=== PATIENT | female | born 1965 | race Caucasian/White ===

== ENCOUNTER 2020-04-28 09:00 | Observation (INO) ==
[2020-04-28 09:32] LABS: Hematocrit 38.4 % (35.3-44.9); Hemoglobin 12.6 g/dL (11.5-15.4); Mean Corpuscular HGB Conc 32.8 g/dL (31.6-35.5); Mean Corpuscular Hemoglobin 31.5 pg (28.0-33.3); Mean Platelet Volume 9.4 fL (9.4-12.4); Platelet Count 183 K/mcL (140-400); Red Cell Distribution Width 12.6 % (11.5-14.5); White Blood Count 4.4 K/mcL (4.3-11.1)
[2020-04-28 09:38] LABS: INR 1.6; Prothrombin Time 18.8 Seconds (9.4-12.1)
[2020-04-28 09:40] LABS: Activated Partial Thrombo Time 34.7 Seconds (26.0-36.0)
[2020-04-28 09:45] LABS: BUN/Creatinine Ratio 10 (6-26); Blood Urea Nitrogen 8 mg/dL (6-20); Calcium 9.1 mg/dL (8.6-10.3); Carbon Dioxide 30 mEq/L (23-29); Chloride 104 mEq/L (98-107); Glucose 112 mg/dL (70-105); Osmolality,Calculated 293 (280-300); Potassium 3.9 mEq/L (3.5-5.1); Sodium 142 mEq/L (136-145); eGFR For African Americans > 60 (> 60); eGFR For Non-African Americans > 60 (> 60)
[2020-04-28 09:49] LABS: Troponin I < 0.03 ng/mL (< 0.04)
[2020-04-28] MEDS ORDERED: Ondansetron 4 MG/2 ML VIAL IVP PRN (10:53)
[2020-04-28] MEDS ORDERED: Naloxone 0.4 MG/ML INJ IVP PRN (10:53)
[2020-04-28] MEDS ORDERED: Isovue-370 500 ML BOTTLE IVP ONE (11:00)
[2020-04-28] MEDS: Acetaminophen 325 MG TABLET PO PRN ×2 (12:07→22:25)
[2020-04-28] MEDS: Nicotine 14 MG PATCH.TD24 TD SCH (16:45)
[2020-04-28] MEDS ORDERED: Melatonin 3 MG TABLET PO ONE (22:30)
[2020-04-29 07:17] LABS: Hematocrit 40.5 % (35.3-44.9); Hemoglobin 13.3 g/dL (11.5-15.4); Mean Corpuscular HGB Conc 32.8 g/dL (31.6-35.5); Mean Corpuscular Hemoglobin 31.7 pg (28.0-33.3); Mean Corpuscular Volume 96.7 fL (83.0-100.0); Mean Platelet Volume 10.5 fL (9.4-12.4); Platelet Count 192 K/mcL (140-400); Red Blood Count 4.19 M/mcL (3.82-4.97); Red Cell Distribution Width 12.6 % (11.5-14.5); White Blood Count 3.8 K/mcL (4.3-11.1)
[2020-04-29 07:28] LABS: BUN/Creatinine Ratio 10 (6-26); Blood Urea Nitrogen 9 mg/dL (6-20); Carbon Dioxide 31 mEq/L (23-29); Chloride 104 mEq/L (98-107); Chol/HDL Ratio 2.2 (0-4.9); Cholesterol 192 mg/dL (< 200); Glucose 105 mg/dL (70-105); HDL Cholesterol 88 mg/dL (40-59); LDL Cholesterol,Calculated 92 mg/dL (< 100); Magnesium 1.9 mg/dL (1.6-2.6); Osmolality,Calculated 287 (280-300); Sodium 139 mEq/L (136-145); Triglycerides 62 mg/dL (< 150); eGFR For African Americans > 60 (> 60); eGFR For Non-African Americans > 60 (> 60)
[2020-04-29] MEDS ORDERED: Sennosides 8.6 MG TABLET PO PRN (07:53)
[2020-04-29] MEDS ORDERED: Melatonin 3 MG TABLET PO PRN (07:53)
[2020-04-29] MEDS ORDERED: ARIPiprazole 400 MG SUSER.SYR IM SCH (08:00)
[2020-04-29] MEDS ORDERED: hydrALAZINE 10 MG TABLET PO SCH (08:00)
[2020-04-29] MEDS: Nicotine 14 MG PATCH.TD24 TD SCH (08:14)
[2020-04-29] MEDS: BuPROPion SR (12 HR) 150 MG TABLET PO SCH (08:14)
[2020-04-29] MEDS: polyethylene glycoL 3350 17 GM POWD.PACK PO SCH (08:15)
[2020-04-29] MEDS ORDERED: ALBUTEROL SULFATE PO SCH (09:00)
[2020-04-29] MEDS ORDERED: IPRATROPIUM PO SCH (09:00)
[2020-04-29] MEDS: OLANZapine 10 MG TAB.RAPDIS PO SCH ×2 (09:44→20:29)
[2020-04-29] MEDS: lamoTRIgine 100 MG TABLET PO SCH (09:48)
[2020-04-29] MEDS: Budesonide/Formoterol 160/4.5 1 PUFF INH IH SCH ×2 (10:46→21:36)
[2020-04-29] MEDS ORDERED: *HR* Rivaroxaban 15 MG TABLET PO SCH (17:00)
[2020-04-30 07:26] VITALS: BP 134/86
[2020-04-30] MEDS: Nicotine 14 MG PATCH.TD24 TD SCH (08:46)
[2020-04-30] MEDS: OLANZapine 10 MG TAB.RAPDIS PO SCH (08:46)
[2020-04-30] MEDS: BuPROPion SR (12 HR) 150 MG TABLET PO SCH (08:46)
[2020-04-30] MEDS: lamoTRIgine 100 MG TABLET PO SCH (08:46)
[2020-04-30] MEDS: polyethylene glycoL 3350 17 GM POWD.PACK PO SCH (08:47)
[2020-04-30] MEDS: Budesonide/Formoterol 160/4.5 1 PUFF INH IH SCH (10:26)
[2020-04-30] MEDS ORDERED: E-Z-PAQUE (BARIUM SULF) SUSP 1 BOTTLE PO ONE (11:19)
[2020-04-30] MEDS ORDERED: E-Z-HD (BARIUM SULF) SUSPENSION PO ONE (11:19)
== END 2020-04-30 13:00 | disposition home health service (06) ==
LOC: EMEROOPIK 09:00 → INPPIK 09:00
PROVIDERS: ADMIT Family Medicine; ATTEND Family Medicine

== ENCOUNTER 2020-10-30 15:43 | Inpatient (IN) ==
[2020-10-30] MEDS ORDERED: Melatonin 3 MG TABLET PO PRN (18:57)
[2020-10-30 21:00] LABS: Basophils % 0.3 %; Eosinophils # 0.1 K/mcL (0.0-0.6); Eosinophils % 1.5 %; Hematocrit 30.3 % (35.3-44.9); Hemoglobin 9.8 g/dL (11.5-15.4); Immature Granulocytes % 0.2 % (0-4); Lymphocytes # 2.2 K/mcL (0.6-4.6); Lymphocytes % 32.5 %; Mean Corpuscular HGB Conc 32.3 g/dL (31.6-35.5); Mean Corpuscular Hemoglobin 31.5 pg (28.0-33.3); Mean Corpuscular Volume 97.4 fL (83.0-100.0); Mean Platelet Volume 9.3 fL (9.4-12.4); Monocytes # 0.6 K/mcL (0.0-1.3); Monocytes % 8.3 %; Neutrophils # 3.8 K/mcL (1.6-8.9); Platelet Count 170 K/mcL (140-400); Red Blood Count 3.11 M/mcL (3.82-4.97); Red Cell Distribution Width 12.4 % (11.5-14.5); Segmented Neutrophils % 57.2 %; White Blood Count 6.6 K/mcL (4.3-11.1)
[2020-10-30 21:04] LABS: INR 1.2; Prothrombin Time 14.1 Seconds (9.4-12.1)
[2020-10-30 21:07] LABS: Activated Partial Thrombo Time 25.6 Seconds (26.0-36.0)
[2020-10-30 21:16] LABS: eGFR For African Americans > 60 (> 60); eGFR For Non-African Americans > 60 (> 60)
[2020-10-30] MEDS: Albuterol 2.5 MG/3 ML NEBULIZER IH SCH (21:19)
[2020-10-30] MEDS: Budesonide/Formoterol 160/4.5 1 PUFF INH IH SCH (21:19)
[2020-10-30] MEDS: traZODone 50 MG TABLET PO SCH (21:42)
[2020-10-30] MEDS: Gabapentin 300 MG CAPSULE PO SCH (21:42)
[2020-10-30] MEDS: *HR* OxyCODONE Immed Rel 5 MG TABLET PO PRN (21:42)
[2020-10-30] MEDS: OLANZapine 10 MG TAB.RAPDIS PO SCH (21:42)
[2020-10-31] MEDS: Albuterol 2.5 MG/3 ML NEBULIZER IH SCH ×6 (00:45→20:29)
[2020-10-31] MEDS: *HR* OxyCODONE Immed Rel 5 MG TABLET PO PRN ×4 (04:48→23:38)
[2020-10-31] MEDS ORDERED: Ipratropium 1 PUFF INHALER IH SCH (05:00)
[2020-10-31] MEDS: Budesonide/Formoterol 160/4.5 1 PUFF INH IH SCH ×2 (07:35→20:29)
[2020-10-31] MEDS: Tiotropium 10 INH DOSE IH SCH (08:24)
[2020-10-31] MEDS: lamoTRIgine 100 MG TABLET PO SCH (09:38)
[2020-10-31] MEDS: lisinopriL 20 MG TABLET PO SCH (09:38)
[2020-10-31] MEDS: OLANZapine 10 MG TAB.RAPDIS PO SCH ×2 (09:39→20:16)
[2020-10-31] MEDS: *HR* Rivaroxaban 15 MG TABLET PO SCH (09:40)
[2020-10-31] MEDS: Vitamin E 200 UNIT (90MG) CAPSULE PO SCH (09:40)
[2020-10-31] MEDS: Gabapentin 300 MG CAPSULE PO SCH ×3 (09:40→20:16)
[2020-10-31] MEDS: BuPROPion SR (12 HR) 150 MG TABLET PO SCH (09:40)
[2020-10-31] MEDS: traZODone 50 MG TABLET PO SCH (20:15)
[2020-10-31] MEDS: Sennosides/Docusate Sodium TABLET PO SCH (20:16)
[2020-10-31] MEDS ORDERED: Lactulose Oral Soln 20 GM/30 ML UDC PO PRN (23:26)
[2020-10-31] MEDS: polyethylene glycoL 3350 17 GM POWD.PACK PO SCH (23:38)
[2020-11-01] MEDS: Albuterol 2.5 MG/3 ML NEBULIZER IH SCH ×7 (00:42→23:30)
[2020-11-01] MEDS: Budesonide/Formoterol 160/4.5 1 PUFF INH IH SCH ×2 (09:05→20:24)
[2020-11-01] MEDS: Tiotropium 10 INH DOSE IH SCH (09:06)
[2020-11-01] MEDS: Vitamin E 200 UNIT (90MG) CAPSULE PO SCH (10:27)
[2020-11-01] MEDS: *HR* OxyCODONE Immed Rel 5 MG TABLET PO PRN ×2 (10:28→17:12)
[2020-11-01] MEDS: lisinopriL 20 MG TABLET PO SCH (10:28)
[2020-11-01] MEDS: BuPROPion SR (12 HR) 150 MG TABLET PO SCH (10:29)
[2020-11-01] MEDS: Sennosides/Docusate Sodium TABLET PO SCH ×2 (10:29→20:17)
[2020-11-01] MEDS: lamoTRIgine 100 MG TABLET PO SCH (10:29)
[2020-11-01] MEDS: *HR* Rivaroxaban 15 MG TABLET PO SCH (10:30)
[2020-11-01] MEDS: OLANZapine 10 MG TAB.RAPDIS PO SCH ×2 (10:30→20:18)
[2020-11-01] MEDS: Gabapentin 300 MG CAPSULE PO SCH ×3 (10:30→20:17)
[2020-11-01] MEDS: polyethylene glycoL 3350 17 GM POWD.PACK PO SCH (10:30)
[2020-11-01] MEDS: traZODone 50 MG TABLET PO SCH (20:16)
[2020-11-02] MEDS: Albuterol 2.5 MG/3 ML NEBULIZER IH SCH ×2 (03:39→10:03)
[2020-11-02] MEDS: *HR* OxyCODONE Immed Rel 5 MG TABLET PO PRN ×3 (06:02→19:43)
[2020-11-02] MEDS ORDERED: Albuterol 2.5 MG/3 ML NEBULIZER IH PRN (08:57)
[2020-11-02] MEDS: Sennosides/Docusate Sodium TABLET PO SCH ×2 (09:07→20:31)
[2020-11-02] MEDS: Gabapentin 300 MG CAPSULE PO SCH ×3 (09:08→20:31)
[2020-11-02] MEDS: Vitamin E 200 UNIT (90MG) CAPSULE PO SCH (09:08)
[2020-11-02] MEDS: OLANZapine 10 MG TAB.RAPDIS PO SCH ×2 (09:08→20:30)
[2020-11-02] MEDS: *HR* Rivaroxaban 15 MG TABLET PO SCH (09:08)
[2020-11-02] MEDS: lamoTRIgine 100 MG TABLET PO SCH (09:09)
[2020-11-02] MEDS: BuPROPion SR (12 HR) 150 MG TABLET PO SCH (09:09)
[2020-11-02] MEDS: lisinopriL 20 MG TABLET PO SCH (09:09)
[2020-11-02] MEDS: polyethylene glycoL 3350 17 GM POWD.PACK PO SCH (09:12)
[2020-11-02] MEDS: Tiotropium 10 INH DOSE IH SCH (10:00)
[2020-11-02] MEDS: Budesonide/Formoterol 160/4.5 1 PUFF INH IH SCH ×2 (10:00→21:16)
[2020-11-02] MEDS: traZODone 50 MG TABLET PO SCH (20:31)
[2020-11-02] MEDS ORDERED: *HR* OxyCODONE Immed Rel 5 MG TABLET PO ONE (21:45)
[2020-11-03 05:52] LABS: Hematocrit 30.8 % (35.3-44.9); Mean Corpuscular HGB Conc 32.5 g/dL (31.6-35.5); Mean Corpuscular Hemoglobin 31.4 pg (28.0-33.3); Mean Corpuscular Volume 96.9 fL (83.0-100.0); Mean Platelet Volume 9.1 fL (9.4-12.4); Platelet Count 251 K/mcL (140-400); Red Blood Count 3.18 M/mcL (3.82-4.97); Red Cell Distribution Width 12.2 % (11.5-14.5)
[2020-11-03 06:13] LABS: BUN/Creatinine Ratio 13 (6-26); Blood Urea Nitrogen 9 mg/dL (6-20); Calcium 8.9 mg/dL (8.6-10.3); Carbon Dioxide 31 mEq/L (23-29); Chloride 104 mEq/L (98-107); Chol/HDL Ratio 3.7 (0-4.9); Cholesterol 164 mg/dL (< 200); Glucose 102 mg/dL (70-105); HDL Cholesterol 44 mg/dL (40-59); LDL Cholesterol,Calculated 99 mg/dL (< 100); Osmolality,Calculated 289 (280-300); Potassium 4.2 mEq/L (3.5-5.1); Sodium 140 mEq/L (136-145); Triglycerides 104 mg/dL (< 150); eGFR For African Americans > 60 (> 60); eGFR For Non-African Americans > 60 (> 60)
[2020-11-03] MEDS: Vitamin E 200 UNIT (90MG) CAPSULE PO SCH (08:38)
[2020-11-03] MEDS: *HR* Rivaroxaban 15 MG TABLET PO SCH (08:38)
[2020-11-03] MEDS: lamoTRIgine 100 MG TABLET PO SCH (08:38)
[2020-11-03] MEDS: Sennosides/Docusate Sodium TABLET PO SCH ×2 (08:39→21:00)
[2020-11-03] MEDS: lisinopriL 20 MG TABLET PO SCH (08:39)
[2020-11-03] MEDS: OLANZapine 10 MG TAB.RAPDIS PO SCH ×2 (08:39→21:00)
[2020-11-03] MEDS: Gabapentin 300 MG CAPSULE PO SCH ×3 (08:39→21:00)
[2020-11-03] MEDS: BuPROPion SR (12 HR) 150 MG TABLET PO SCH (08:39)
[2020-11-03] MEDS: polyethylene glycoL 3350 17 GM POWD.PACK PO SCH (08:40)
[2020-11-03] MEDS: Tiotropium 10 INH DOSE IH SCH (10:18)
[2020-11-03] MEDS: Budesonide/Formoterol 160/4.5 1 PUFF INH IH SCH ×2 (10:18→20:07)
[2020-11-03] MEDS: *HR* OxyCODONE Immed Rel 5 MG TABLET PO PRN (21:00)
[2020-11-03] MEDS: traZODone 50 MG TABLET PO SCH (21:00)
[2020-11-04] MEDS: Sennosides/Docusate Sodium TABLET PO SCH (08:39)
[2020-11-04] MEDS: lisinopriL 20 MG TABLET PO SCH (08:39)
[2020-11-04] MEDS: BuPROPion SR (12 HR) 150 MG TABLET PO SCH (08:39)
[2020-11-04] MEDS: polyethylene glycoL 3350 17 GM POWD.PACK PO SCH (08:39)
[2020-11-04] MEDS: Vitamin E 200 UNIT (90MG) CAPSULE PO SCH (08:39)
[2020-11-04] MEDS: Gabapentin 300 MG CAPSULE PO SCH ×2 (08:39→15:47)
[2020-11-04] MEDS: OLANZapine 10 MG TAB.RAPDIS PO SCH (08:39)
[2020-11-04] MEDS: *HR* Rivaroxaban 15 MG TABLET PO SCH (08:39)
[2020-11-04] MEDS: lamoTRIgine 100 MG TABLET PO SCH (08:40)
[2020-11-04] MEDS: Budesonide/Formoterol 160/4.5 1 PUFF INH IH SCH (09:24)
[2020-11-04] MEDS: Tiotropium 10 INH DOSE IH SCH (09:24)
[2020-11-04 17:18] VITALS: BP 117/72
[2020-11-04] MEDS: *HR* OxyCODONE Immed Rel 5 MG TABLET PO PRN (17:35)
== END 2020-11-04 18:03 | disposition home health service (06) | DRG 560 ==
LOC: INPPIK 19:26
PROVIDERS: ADMIT Family Medicine; ATTEND Family Medicine